=== PATIENT | male | born 1955 | race Caucasian/White ===

== ENCOUNTER 2024-03-14 19:16 | Emergency (ER) | payer OTHER ==
[~2024-03-14] VITALS: Ht 175.3 cm; Wt 101.0 kg
[~2024-03-14 19:16] MED LIST: AML5T PO; ASPI-394 PO; Atorvastatin Calcium PO; CLOP75TA28 PO; GLYB2.5T9 PO; LOS50T PO; TRAM50TA2 PO
[2024-03-14 19:53] LABS: Basophils # (auto) 0.1 10 ^3/uL (0-0.2); Basophils % (auto) 0.9 % (0.0-2.0); Eosinophils # (auto) 0 10 ^3/uL (0-0.8); Eosinophils % (auto) 0.2 % (0.0-7.0); Hemoglobin 18.4 g/dL (13.5-17.5); Lymphocytes % (auto) 35.6 % (10.0-50.0); Mean Corpuscular Hemoglobin 30.4 pg (28.0-32.0); Mean Corpuscular Hgb Conc. 32.8 g/dL (32.0-36.0); Mean Corpuscular Volume 92.6 fL (80.0-100.0); Monocytes # (auto) 0.8 10 ^3/uL (0-1.3); Monocytes % (auto) 7.5 % (0.0-12.0); Neutrophils # (auto) 6.3 10 ^3/uL (1.6-8.6); Neutrophils % (auto) 55.8 % (37.0-80.0); Nucleated Red Blood Cells % 0.6 %; Red Blood Cells 6.05 10^6/uL (4.5-5.90); Red Cell Distribution Width 14.1 % (11.8-14.3); White Blood Cell 11.3 10^3/uL (4.4-10.8)
[2024-03-14 20:00] VITALS: TEMP 98.1
[2024-03-14 20:02] LABS: Chloride 103 mmol/L (98-107); Potassium 4.3 mmol/L (3.5-5.1); Sodium 138 mmol/L (136-145)
[2024-03-14 20:03] LABS: Anion Gap 12 (5-15); Calcium 10.6 mg/dL (8.5-10.1); Carbon Dioxide 23 mmol/L (20-30)
[2024-03-14 20:08] LABS: BUN/Creatinine Ratio 13.3 (10.0-20.0); Blood Urea Nitrogen 15 mg/dL (9-23); Glucose 248 mg/dL (74-106)
[2024-03-14 20:15] LABS: Prothrombin Time 10.6 sec (9.3-11.8)
[2024-03-14] MEDS: LABETALOL HCL 5 MG/ML 4ML SYRINGE IV ONE (20:48)
[2024-03-14] MEDS: MORPHINE SULFATE 4 MG/ML SYR/VIAL IV ONE (20:48)
[2024-03-14] MEDS: ASPirin 325 MG TAB PO ONE (21:31)
[2024-03-14 21:32] VITALS: PULSE 81; RESP 12; O2SAT 97
[2024-03-14] MEDS: KETOROLAC TROMETH 30 MG/ML 1ML VIAL IV ONE (22:19)
[2024-03-14 22:30] VITALS: BP 154/79; PULSE 78; RESP 11; O2SAT 96
== END 2024-03-14 22:32 | disposition home or self-care (01) ==
LOC: ER 19:16
DX: I63.9 Cerebral infarction, unspecified (principal); R51.9 Headache, unspecified; I10 Essential (primary) hypertension; Z79.899 Other long term (current) drug therapy
CPT/HCPCS: 36415; 70450; 80048; 82962; 84484; 85025; 85610; 93005; 96374; 96375; 99291; J1885; J2270; J3490

== ENCOUNTER 2025-05-13 19:20 | Emergency (ER) | payer OTHER ==
[~2025-05-13] VITALS: Ht 175.3 cm; Wt 123.6 kg
[2025-05-13 20:42] VITALS: BP 139/68; PULSE 84; RESP 16; TEMP 98.1; O2SAT 97
== END 2025-05-13 22:28 | disposition left against medical advice (07) ==
LOC: ER 19:22
DX: M54.9 Dorsalgia, unspecified (principal); Z53.21 Procedure and treatment not carried out due to patient leaving prior to being seen by health care provider
CPT/HCPCS: 82947; 82962